=== PATIENT | female | born 1995 | race Caucasian/White ===

== ENCOUNTER 2016-10-06 15:52 | Emergency (ER) | payer OTHER ==
[2016-10-06] MEDS ORDERED: NS 0.9% 1000 ML* 2,000 ML IV ONE (16:44)
[2016-10-06 16:48] LABS: Hematocrit 41 % (35-47); Hemoglobin 13.9 g/dl (12.0-16.0); Mean Corpuscular HGB Conc 34 g/dl (31-36); Mean Corpuscular Hemoglobin 31 pg (27-31); Mean Corpuscular Volume 91 fL (80-97); Mean Platelet Volume 7 um3 (7.4-10.4); Red Blood Count 4.54 10^6/ul (4.0-5.4); Red Cell Distribution Width 12 % (10.5-15); White Blood Count 11.8 10^3/ul (3.5-10.8)
[2016-10-06 17:05] LABS: ALT 24 U/L (7-52); AST 24 U/L (13-39); Albumin 4.6 g/dL (3.2-5.2); Alkaline Phosphatase 52 U/L (34-104); Anion Gap 13 mmol/L (2-11); BUN/Creatinine Ratio 16.9 (8-20); Blood Urea Nitrogen 13 mg/dL (6-24); CO2 Carbon Dioxide 20 mmol/L (22-32); Calcium 9.7 mg/dL (8.6-10.3); Chloride 98 mmol/L (101-111); EGFR African American 121.7 (>60); EGFR Non-African American 94.6 (>60); Globulin 3.4 g/dL (2-4); Glucose 106 mg/dL (70-100); Magnesium 1.7 mg/dL (1.9-2.7); Potassium 3.5 mmol/L (3.5-5.0); Sodium 131 mmol/L (133-145)
[2016-10-06] MEDS ORDERED: Magnesium Sulfate 2 GM IV* 2 GM/50 ML BAG IVPB ONE (17:10)
[2016-10-06] MEDS ORDERED: LORazepam INJ* 2 MG/ML 1 ML VIAL IV PUSH ONE ×2 (17:11)
[2016-10-06 17:35] LABS: Acetaminophen < 15 mcg/mL; Alcohol < 10 mg/dL (<10); Salicylate < 2.50 mg/dL (<30)
--- NOTE | 2016-10-06 17:44 | RAD ---
Indication: Shortness of breath, palpitations, anxiety. Comparison: None. Technique: Upright AP 1725 hours Report: Clear lungs and pleural spaces. Negative for pneumothorax. The heart, pulmonary vasculature, and mediastinal contours are unremarkable. Unremarkable osseous structures and soft tissue contours. IMPRESSION: No evidence for acute intrathoracic disease.
[2016-10-06 17:46] LABS: TSH (Thyroid Stimulating Horm) 1.48 mcIU/mL (0.34-5.60)
[2016-10-06 18:32] LABS: Urine Bilirubin Negative (Negative); Urine Glucose Negative (Negative); Urine Nitrite Negative (Negative)
[2016-10-06 18:49] LABS: Benzodiazepine Urine Screen None Detected (None Detect)
[2016-10-06] MEDS ORDERED: LORazepam TAB(*) 1 MG PO ONE (20:10)
[2016-10-06 20:57] VITALS: BP 143/74
--- NOTE | 2016-10-06 20:59 | ED ---
I, Oh,Soohrolando, scribed for Maxwell Albrecht MD on 10/06/16 at 1714 . Palpitations / Dysrhythmia - HPI Summary HPI Summary: This 20 y/o female [employer] student presents to ED for acute palpitation. Positive mild chest discomfort that is worse with deep breath. Positive lightheaded dizziness and near syncope that is worse when standing up. PMHx includes asthma. Negative n/v/d. Pt consumed adderral, EtOH, and MJ in order to "stay awake and study". No PMHx of ADHD. No known anxiety. - History of Current Complaint Chief Complaint: EDDizziness Time Seen by Provider: 10/06/16 16:41 Hx Obtained From: Patient, Medical Records Onset/Duration: Sudden Onset, Still Present Character: Pounding Aggravating: Nothing Alleviating: Nothing Associated Signs & Symptoms: Lightheadedness, Syncope - near syncope - Allergy/Home Medications Allergies/Adverse Reactions: Allergies Allergy/AdvReac Type Severity Reaction Status Date / Time No Known Allergies Allergy Verified 08/23/15 13:06 PMH/Surg Hx/FS Hx/Imm Hx Endocrine/Hematology History: Denies: Hx Diabetes Cardiovascular History: Denies: Hx Hypertension, Hx Pacemaker/ICD Sensory History: Denies: Hx Hearing Aid Psychiatric History: Denies: Hx Panic Disorder - Surgical History Surgery Procedure, Year, and Place: LT HIP SURGERY - LABRAL REAPAIR. Lt [facility]K[place] - TENDON REPAIR - 11/2014 -[place] Infectious Disease History: No Infectious Disease History: Denies: Traveled Outside the [place] in Last 30 Days - Family History Known Family History: Positive: Cardiac Disease - grandpa - Social History Occupation: Student - [employer] Alcohol Use: Weekly Substance Use Type: Reports: Marijuana, Prescribed Substance Use Comment - Amount & Last Used: Adderall yesterday Hx Tobacco Use: No Smoking Status (MU): Never Smoked Tobacco Review of Systems Positive: Chills. Negative: Fever Positive: Palpitations, Chest Pain - elicited with deep breath Positive: Abdominal Pain - discomfort All Other Systems Reviewed And Are Negative: Yes Physical Exam - Summary Physical Exam Summary: The patient is well-nourished in no acute distress and in no acute pain. The skin is warm and dry and skin color reflects adequate perfusion. HEENT: The head is normocephalic and atraumatic. The pupils are equal and reactive. The conjunctivae are clear and without drainage. Nares are patent and without drainage. Mouth reveals moist mucous membranes and the throat is without erythema and exudate. The external ears are intact. The ear canals are patent and without drainage. The tympanic membranes are intact. Neck is supple with full range of motion and non-tender. There are no carotid bruits. There is no neck vein distension. Respiratory: Chest is non-tender. Lungs are clear to auscultation and breath sounds are symmetrical and equal. Cardiovascular: Heart rate is tachycardic. There is no murmur or rub auscultated. There is no peripheral edema and pulses are symmetrical and equal. Abdomen: The abdomen is soft and non-tender. There are normal bowel sounds heard in all four quadrants and there is no organomegaly palpated. Musculoskeletal: There is no back pain noted. Extremities are non-tender with full range of motion. There is good capillary refill. There is no peripheral edema or calf tenderness elicited. Neurological: Patient is alert and oriented to person, place and time. The patient has symmetrical motor strength in all four extremities. Cranial nerves are grossly intact. Deep tendon reflexes are symmetrical and equal in all four extremities. Psychiatric: The patient is noted with increased anxiety. Triage Information Reviewed: Yes Vital Signs On Initial Exam: Initial Vitals Temp Pulse Resp BP Pulse Ox 99.1 F 141 20 183/94 100 10/06/16 15:54 10/06/16 15:54 10/06/16 15:54 10/06/16 15:54 10/06/16 15:54 Vital Signs Reviewed: Yes - [place] Coma Scale Coma Scale Total: 15 Diagnostics - Vital Signs Vital Signs Temp Pulse Resp BP Pulse Ox 10/06/16 16:30 132 17 140/85 99 10/06/16 16:22 122 14 147/77 99 10/06/16 16:21 77 26 90 10/06/16 15:58 97.4 F 143 20 183/84 98 10/06/16 15:54 99.1 F 141 20 183/94 100 - Laboratory Lab Results: Lab Results 10/06/16 Range/Units 16:38 WBC 11.8 H (3.5-10.8) 10^3/ul RBC 4.54 (4.0-5.4) 10^6/ul Hgb 13.9 (12.0-16.0) g/dl Hct 41 (35-47) % MCV 91 (80-97) fL MCH 31 (27-31) pg MCHC 34 (31-36) g/dl RDW 12 (10.5-15) % Plt Count 353 (150-450) 10^3/ul MPV 7 L (7.4-10.4) um3 Neut % (Auto) 68.1 (38-83) % Lymph % (Auto) 23.4 L (25-47) % [place] % (Auto) 7.3 (1-9) % Eos % (Auto) 0.5 (0-6) % Baso % (Auto) 0.7 (0-2) % Absolute Neuts (auto) 8.0 H (1.5-7.7) 10^3/ul Absolute Lymphs (auto) 2.8 (1.0-4.8) 10^3/ul Absolute Monos (auto) 0.9 H (0-0.8) 10^3/ul Absolute Eos (auto) 0.1 (0-0.6) 10^3/ul Absolute Basos (auto) 0.1 (0-0.2) 10^3/ul Absolute Nucleated RBC 0.01 10^3/ul Nucleated RBC % 0.1 Result Diagrams: 10/06/16 16:38 10/06/16 16:38 Lab Statement: Any lab studies that have been ordered have been reviewed, and results considered in the medical decision making process. - Radiology CXR Xray Interpretation: No Acute Changes Radiology Interpretation Completed By: Radiologist - EKG 1605 Cardiac Rate: Tachycardia - 129 bpm EKG Rhythm: Sinus Tachycardia EKG Interpretation: Nonspecific ST changes Re-Evaluation - Re-Evaluation First Eval Re-Evaluation Time: 20:07 Comment: Dr. Albrecht in room to re-evaluate pt and update her on CXR and bloodwork results. Course/Dx - Course Assessment/Plan: This 20 y/o female presents to ED for palpitation since today. Pt reports consumption of EtOH, MJ, and adderrall to "keep myself awake". EKG indicates sinus tachycardia with no acute ischemic changes. Upon examination, pt was noted with tachycardia and increased anxiety. Blood work indicates dehydration and low magnesium level. Pt was given fluid resuscitation as well as lorazepam and magnesium. Pt was discharged after improvement of symptoms with outpatient f/u with Anneliese and with ativan rx. - Diagnoses Differential Diagnosis/HQI/PQRI: Positive: Hypokalemia, Medication Induced, Panic Disorder, Other - dehydration, alcoholic use, polysubstance abuse Provider Diagnoses: Tachycardia, Hypomagnesemia, Dehydration, Anxiety, Polysubstance abuse Discharge - Discharge Plan Condition: Stable Disposition: HOME Prescriptions: LORazepam TAB(*) [Ativan 1 MG TAB (*)] 1 mg PO Q8H PRN #12 tab MDD 3 PRN Reason: anxiety Patient Education Materials: Lorazepam (By mouth), Dehydration (ED), Polysubstance Abuse (ED), Anxiety (ED), Tachycardia (ED) Forms: *School Release Referrals: [facility] [Primary Care Provider] - 2 Days The documentation as recorded by the Sundar canela Soohyun accurately reflects the service I personally performed and the decisions made by me, Maxwell Albrecht MD.
== END 2016-10-06 20:53 | disposition home or self-care (01) ==
LOC: ED 15:52
DX: R00.0 Tachycardia, unspecified (principal); E83.42 Hypomagnesemia; E86.0 Dehydration; F41.9 Anxiety disorder, unspecified; F19.10 Other psychoactive substance abuse, uncomplicated; Z32.02 Encounter for pregnancy test, result negative
CPT/HCPCS: 36415; 71010; 80053; 80307; 80320; 80329; 81003; 83735; 84443; 84702; 85025; 85379; 93005; 96365; 96375; 96376; 99284; A9270-GY; G0480; J2060